=== PATIENT | female | born 1975 | race Caucasian/White ===

== ENCOUNTER → 2017-08-22 09:43 | Outpatient (CLI) | payer OTHER, SELFPAY ==
--- NOTE | 2017-08-22 | DI.US.S_ITS ---
PROCEDURE: US THYROID INDICATIONS: ENLARGED THYROID TECHNIQUE: Real-time scanning was performed of the thyroid gland, with image documentation. COMPARISON: None. FINDINGS: Right: Thyroid lobe measures 4 x 1.3 x 1.3 cm. Left: Thyroid lobe measures 4.2 x 1.3 x 1.6 cm. Isthmus: 4 mm thick. Nodule number: 1 Location: Inferior right thyroid Size: 7 x 4 x 3 mm Composition: Solid Echogenicity: Hypoechoic Shape: wider than tall. Margins: Smooth Echogenic foci: None Total points: 3 ACR TI-RADS category: 3 Nodule number: 2 Location: Mid left thyroid Size: 8 x 4 x 8 mm Composition: Solid Echogenicity: Hypoechoic Shape: wider than tall. Margins: Smooth Echogenic foci: None Total points: 4 ACR TI-RADS category: 4 IMPRESSION: Subcentimeter nodules are seen involving each lobe of the thyroid. By published criteria, no specific imaging followup is recommended. Dictated by: Dar Arnold M.D. on 08/22/2017 at 9:42 Approved by: Dar Arnold M.D. on 08/22/2017 at 9:45
== END ==
PROVIDERS: Visit Provider Nurse Practitioner Family
DX: E04.2 Nontoxic multinodular goiter (principal)
CPT/HCPCS: 76536